=== PATIENT | male | born 1955 | race American Indian/Alaskan Native ===

== ENCOUNTER 2016-09-01 14:00 | Outpatient (CLI) | payer BC ==
[2016-09-01 14:35] LABS: Hematocrit 46.4 % (35.5-45.6); Hemoglobin 14.8 gm/dl (11.8-15.2); Mean Corpuscular HGB Conc 32 % (32-34); Mean Corpuscular Hemoglobin 25 pg (28-32); Mean Corpuscular Volume 79 fl (84-94); Platelet Count 232 K/mm3 (140-440); Red Blood Count 5.87 M/mm3 (3.65-5.03); White Blood Count 29.5 K/mm3 (4.5-11.0)
[2016-09-01 15:18] LABS: Alanine Aminotransferase 27 units/L (7-56); Albumin 4.3 g/dL (3.9-5); Albumin/Globulin Ratio 1.5 %; Alkaline Phosphatase 125 units/L (35-129); Anion Gap 22 mmol/L; Blood Urea Nitrogen 18 mg/dL (9-20); Calcium 9.4 mg/dL (8.4-10.2); Carbon Dioxide 22 mmol/L (22-30); Chloride 94.8 mmol/L (98-107); Cholesterol 189 mg/dL (50-199); Glucose 168 mg/dL (75-100); HDL Cholesterol 61 mg/dL (40-59); LDL Cholesterol,Direct 108 mg/dL (50-130); Potassium 4.4 mmol/L (3.6-5.0); Sodium 134 mmol/L (137-145); Total Protein 7.2 g/dL (6.3-8.2); Triglycerides 100 mg/dL (2-149)
[2016-09-01 15:33] LABS: Basophils % (Manual) 0.5 % (0.0-1.8); Blastocytes % (Manual) 0 %; Eosinophils % (Manual) 0 % (0.0-4.3)
[2016-09-01 15:34] LABS: Diff Status Complete; Elliptocytes Few; Hypochromasia 1+; Microcytosis 1+
--- NOTE | 2016-09-01 15:46 | XRay Report ---
LEFT HIP RADIOGRAPHS INDICATION: Left hip pain. COMPARISON: 12/09/2009. FINDINGS: AP pelvis with frontal and frog-leg projections the left hip, 3 images again demonstrate left hip arthroplasty without evidence of loosening. Mild lucency though surrounds the acetabular cap, possibly bone resorption. Stable right hip with mild degenerative spurring along the neck laterally as also possible partial uncovering of the right femoral head laterally. Approximately 2 cm lucency at the junction of the right femoral head and neck medially may now be degenerative/subchondral cyst. Intact remainder imaged pelvis and included lower lumbar spine. Nonobstructive bowel gas pattern. CONCLUSION: 1. Left hip arthroplasty again noted with possible bone resorption around the acetabular component, as described. Please correlate. 2. Other findings, including possible right hip degenerative changes. Thank you for the opportunity to participate in this patient's care.
[2016-09-01 16:19] LABS: Prostate Specific Antigen 0.29 ng/mL (0.00-4.00)
== END 2016-09-01 14:01 | disposition home or self-care (01) ==
LOC: XRAY 14:00
PROVIDERS: ATTEND Internal Medicine
DX: Z12.5 Encounter for screening for malignant neoplasm of prostate (principal); E23.0 Hypopituitarism; E78.2 Mixed hyperlipidemia; E03.9 Hypothyroidism, unspecified; M25.552 Pain in left hip; Z96.642 Presence of left artificial hip joint
CPT/HCPCS: 36415; 80053; 80061; 84153; 84402; 84439; 84443; 85007; 85025

== ENCOUNTER 2016-09-21 10:35 | Outpatient (CLI) | payer BC ==
[2016-09-21 10:50] LABS: Basophils % (Auto) 0.9 % (0.0-1.8); Eosinophils % (Auto) 1.8 % (0.0-4.3); Hemoglobin 11.2 gm/dl (11.8-15.2); Mean Corpuscular HGB Conc 32 % (32-34); Mean Corpuscular Volume 81 fl (84-94); Platelet Count 495 K/mm3 (140-440); Red Blood Count 4.34 M/mm3 (3.65-5.03); Red Cell Distribution Width 16.9 % (13.2-15.2); White Blood Count 8.5 K/mm3 (4.5-11.0)
[2016-09-21 11:02] LABS: Mean Corpuscular Hemoglobin 26 pg (28-32)
== END 2016-09-21 10:36 | disposition home or self-care (01) ==
LOC: LAB 10:35
PROVIDERS: ATTEND Internal Medicine
DX: D72.9 Disorder of white blood cells, unspecified (principal)
CPT/HCPCS: 36415; 85025